=== PATIENT | male | born 1965 | race Caucasian/White ===

== ENCOUNTER 2017-09-26 01:22 | Emergency (ER) | payer SELFPAY ==
--- NOTE | 2017-09-26 01:39 | ED Physician Chart ---
ED Chief Complaint/HPI - Patient Information Date Seen:: 09/26/17 Time Seen:: 01:30 Chief Complaint:: bilateral knee pain History of Present Illness:: Patient complains of bilateral knee pain; no trauma Allergies:: Allergies Allergy/AdvReac Type Severity Reaction Status Date / Time No Known Allergies Allergy Verified 09/26/17 01:23 Vitals:: Vital Signs - 8 hr 09/26/17 01:23 Temp 98.1 F HR 89 RR 20 BP 128/64 O2 Sat % 97 Historian:: Patient Review:: Nurse's Note Reviewed, Transfer documents Reviewed ED Review of Systems - Review of Systems General/Constitutional: No fever, No chills Skin: No skin lesions Head: No headache Eyes: No loss of vision ENT: No earache Neck: No neck pain Cardio Vascular: No chest pain Pulmonary: No SOB GI: No nausea, No vomiting, No diarrhea G/U: No dysuria Musculoskeletal: Bone or joint pain Endocrine: No polyuria Psychiatric: No prior psych history, No anxiety Hematopoietic: No bruising Neurological: No syncope, No focal symptoms ED Past Medical History - Past Medical History Past Medical History: No significant medical hx Family History: None Social History: Smoker, Homeless Surgical History: None Psychiatricy History: None Family Medical History - Family Member Mother History Unknown: Yes ED Physical Exam - Physical Examination General/Constitutional: Well-developed, well-nourished, Alert, No distress Head: Atraumatic Eyes: Lids, conjuctiva normal, PERRL Skin: Nl inspection ENMT: External ears, nose nl Neck: No nuchal rigidity Respiratory: Nl effort/Exclusion, Clear to Auscultation Cardio Vascular: RRR, No murmur, gallop, rubs, NL S1 S2 GI: No tenderness/rebounding/guarding, No organomegaly : No CVA tenderness Extremities: No tenderness or effusion, Full ROM, No edema, Normal digits & nails Other Extremities comments:: No redness, swelling or tenderness of the knees Neuro/Psych: Alert/oriented, No focal deficits Misc: No paraspinal tenderness ED Septic Shock - . Is Septic Shock (SBP<90, OR Lactate>4 mmol\L) present?: No - <6hrs of presentation: Vital Signs: Vital Signs - 8 hr 09/26/17 01:23 Temp 98.1 F HR 89 RR 20 BP 128/64 O2 Sat % 97 ED Reassessment (Disposition) - Reassessment Reassessment Condition:: Unchanged - Diagnosis Diagnosis:: Musculoskeletal knee pain - Aftercare/Follow up Instructions Aftercare/Follow-Up Instructions:: Refer to Discharge Instructions - Patient Disposition Discharge/Transfer:: Home Condition at Disposition:: Stable, Unchanged
== END 2017-09-26 01:50 | disposition home or self-care (01) ==
LOC: ER 01:22
DX: M25.561 Pain in right knee (principal); M25.562 Pain in left knee; F17.200 Nicotine dependence, unspecified, uncomplicated; Z59.0 Homelessness
CPT/HCPCS: Z7502